=== PATIENT | male | born 1980 | race Two or more races ===

== ENCOUNTER → 2022-12-04 | Emergency (ER) | payer OTHER ==
[~2022-12-04] VITALS: Ht 190.5 cm; Wt 90.7 kg
== END | disposition home or self-care (01) ==
LOC: ER 13:26
DX: N20.1 Calculus of ureter (principal)

== ENCOUNTER 2023-12-17 12:04 | Emergency (ER) | payer OTHER ==
[~2023-12-17] VITALS: Ht 190.5 cm; Wt 99.8 kg
[2023-12-17 13:42] LABS: URINE APPEARANCE Clear; URINE BILIRRUBIN Negative (NEGATIVE); URINE BLOOD Negative; URINE COLOR Yellow; URINE GLUCOSE Negative (NEGATIVE); URINE LEUKOCYTE Negative; URINE NITRATE Negative; URINE PROTEIN Negative (NEGATIVE)
[2023-12-17 13:43] LABS: HEMATOCRIT 44.1 % (39.0-48.0); HEMOGLOBIN 14.7 g/dL (13-16.00); MEAN CORPUSCULAR HEMOGLOBIN 28.3 pg (27.00-32.0); MEAN CORPUSCULAR HGB CONC 33.4 g/dl (32.0-36.0); PLATELET COUNT 251 K/uL (150-450); RED BLOOD COUNT 5.19 M/uL (4.00-6.00); RED CELL DISTRIBUTION WIDTH 14.2 % (11.5-14.5)
[2023-12-17 13:46] LABS: URINE BACTERIA 8.8 uL (0.0-1933); URINE RBC 7.1 uL (0.0-20.8); URINE WBC 7.8 uL (0.0-23.2)
[2023-12-17 14:00] LABS: URINE EPITHELIAL CELLS 1.2 uL (0.0-38.8)
[2023-12-17 14:55] LABS: CREATININE SERUM 1.43 mg/dL (0.70-1.30); GFR 53.97; POTASSIUM 4.21 mEq/L (3.5-5.1)
== END 2023-12-17 15:44 | disposition home or self-care (01) ==
LOC: ER 12:04
PROVIDERS: General Practice
DX: N13.39 Other hydronephrosis (principal); N20.1 Calculus of ureter

== ENCOUNTER 2023-12-21 08:28 | Emergency (ER) | payer OTHER ==
[~2023-12-21] VITALS: Ht 188 cm; Wt 99.8 kg
[2023-12-21] MEDS ORDERED: CIPRO250 MG (08:44)
[2023-12-21] MEDS ORDERED: HYOSCYAMINE0.125 M2 (08:46)
[2023-12-21] MEDS ORDERED: TAMS0.4C PO (08:46)
[2023-12-21] MEDS ORDERED: ZOFRAN8 MG (08:46)
[2023-12-21 09:32] LABS: HEMATOCRIT 39.5 % (39.0-48.0); HEMOGLOBIN 13.4 g/dL (13-16.00); MEAN CELL VOLUME 84.6 fL (80.0-100.00); MEAN CORPUSCULAR HEMOGLOBIN 28.8 pg (27.00-32.0); PLATELET COUNT 227 K/uL (150-450); RED BLOOD COUNT 4.67 M/uL (4.00-6.00); RED CELL DISTRIBUTION WIDTH 14.1 % (11.5-14.5)
[2023-12-21 09:57] LABS: INR 1.09; PARTIAL THROMBOPLASTIN TIME 30.2 SECONDS (22.0-34.0); PROTHROMBIN TIME 11.4 SECONDS (9.0-11.5)
[2023-12-21 10:31] LABS: ALBUMIN 3.7 gm/dL (3.4-5.0); BILIRUBIN TOTAL 0.62 mg/dL (0.3-1.2); CALCIUM 9.6 mg/dL (8.5-10.1); CREATININE SERUM 1.57 mg/dL (0.70-1.30); GFR 48.46; GLOBULINA 3.8 G/DL (2.4-3.5); POTASSIUM 4.26 mEq/L (3.5-5.1); TOTAL PROTEIN 7.5 gm/dL (6.4-8.2)
== END 2023-12-21 15:29 | disposition home or self-care (01) ==
LOC: ER 08:28
PROVIDERS: General Practice
DX: R10.9 Unspecified abdominal pain (principal); Z87.442 Personal history of urinary calculi